=== PATIENT | male | born 1955 | race Caucasian/White ===

== ENCOUNTER 2021-12-19 09:20 | Emergency (ER) | payer OTHER ==
[~2021-12-19] VITALS: Ht 175.3 cm; Wt 125.0 kg
[2021-12-19 09:32] VITALS: BP 147/77
[2021-12-19] MEDS ORDERED: AVODART0.5 MG PO (09:43)
[2021-12-19] MEDS ORDERED: CEPHALEXIN500 MG PO (09:44)
[2021-12-19] MEDS ORDERED: CRESTOR20 MG PO (09:44)
[2021-12-19] MEDS ORDERED: XARELTO10 MG PO (09:45)
[2021-12-19] MEDS ORDERED: ACETAMINOP160 MG/5 M PO (09:45)
[2021-12-19 12:35] VITALS: BP 155/80
[2021-12-19] MEDS ORDERED: HYDROCO/APAP1 TA9 PO (12:36)
[2021-12-19] MEDS ORDERED: ZOFRAN4 MG/TAB PO (12:36)
== END 2021-12-19 12:59 | disposition home or self-care (01) | DRG 605 ==
LOC: ED 09:20
PROC: 0HDRXZZ Extraction of Toe Nail, External Approach (ICD-10-PCS; principal; 2021-12-19)
DX: S91.211A Laceration without foreign body of right great toe with damage to nail, initial encounter (principal); I10 Essential (primary) hypertension; I48.91 Unspecified atrial fibrillation; W22.8XXA Striking against or struck by other objects, initial encounter; Y93.H2 Activity, gardening and landscaping; Y92.007 Garden or yard of unspecified non-institutional (private) residence as the place of occurrence of the external cause